=== PATIENT | female | born 1960 | race Hispanic/Latino ===

== ENCOUNTER → 2017-06-28 | Outpatient (CLI) | payer MEDICARE, OTHER | END | disposition home or self-care (01) | LOC: GT 08:10 | PROVIDERS: ATTEND Internal Medicine | DX: E11.9 Type 2 diabetes mellitus without complications (principal) | CPT/HCPCS: 36415; 83036; P9603 ==

== ENCOUNTER → 2017-07-03 | Outpatient (CLI) | payer MEDICARE, OTHER | LOC: GT 07:55 | DX: Z51.81 Encounter for therapeutic drug level monitoring (principal) ==

== ENCOUNTER → 2017-07-15 | Outpatient (CLI) | payer MEDICARE, MEDICAID | LOC: GT 07:22 | PROVIDERS: ATTEND Internal Medicine | DX: E11.9 Type 2 diabetes mellitus without complications (principal); Z79.899 Other long term (current) drug therapy | CPT/HCPCS: 36415; 80053; 83036; 85025; P9603 ==

== ENCOUNTER → 2017-07-19 | Outpatient (CLI) | payer MEDICARE, MEDICAID | LOC: GT 07:55 | PROVIDERS: ATTEND Psychiatry & Neurology Geriatric Psychiatry | DX: E87.6 Hypokalemia (principal); F25.0 Schizoaffective disorder, bipolar type; Z51.81 Encounter for therapeutic drug level monitoring ==

== ENCOUNTER → 2017-09-25 | Outpatient (CLI) | payer MEDICARE, MEDICAID | LOC: GT 09:28 | PROVIDERS: ATTEND Internal Medicine | DX: N39.0 Urinary tract infection, site not specified (principal); R63.4 Abnormal weight loss ==

== ENCOUNTER → 2017-10-02 | Outpatient (CLI) | payer MEDICARE, MEDICAID | LOC: GT 09:26 | PROVIDERS: ATTEND Internal Medicine | DX: R63.4 Abnormal weight loss (principal); Z51.81 Encounter for therapeutic drug level monitoring ==

== ENCOUNTER → 2017-10-04 | Outpatient (CLI) | payer MEDICARE, MEDICAID | LOC: GT 14:54 | PROVIDERS: ATTEND Internal Medicine | DX: A04.72 Enterocolitis due to Clostridium difficile, not specified as recurrent (principal) ==

== ENCOUNTER → 2017-10-11 | Outpatient (CLI) | payer MEDICARE, MEDICAID | LOC: GT 07:37 | PROVIDERS: ATTEND Internal Medicine | DX: Z79.899 Other long term (current) drug therapy (principal); E11.9 Type 2 diabetes mellitus without complications | CPT/HCPCS: 36415; 80053; 83036; 85025; P9603 ==

== ENCOUNTER → 2018-01-08 | Outpatient (CLI) | payer MEDICARE, MEDICAID | LOC: GT 15:05 | PROVIDERS: ATTEND Internal Medicine | DX: R10.9 Unspecified abdominal pain (principal); R68.89 Other general symptoms and signs; R53.83 Other fatigue ==

== ENCOUNTER 2018-01-10 13:44 | Emergency (ER) | payer MEDICARE, MEDICAID ==
[2018-01-10] MEDS ORDERED: cefTRIAXone SODIUM 2 GM in SODIUM CHL 0.9% 100ML MINI-BAG 100 ML IVPB ONE (14:39)
[2018-01-10] MEDS ORDERED: SODIUM CHLORIDE 0.9% 1000ML 1,000 ML IVS ONE ×2 (14:39→14:47)
[2018-01-10] MEDS ORDERED: SODIUM CHLORIDE 0.9% (FLUSH) 10 ML SYG IV PRN (14:39)
[2018-01-10] MEDS ORDERED: SODIUM CHL 0.9% 100ML MINI-BAG 100 ML IVPB ONE (14:53)
--- NOTE | 2018-01-10 15:10 | RAD ---
Right lateral decubitus single view abdomen. Single view chest. Indication: sepsis Comparison: None. Impression: Patient rotated to the right. Mild cardiomegaly. Tiny right pleural effusion. Mild right basilar atelectasis. No pneumothorax. No signs of intra-abdominal free air. Bowel gas pattern nonspecific without findings of obstruction. Osteopenia. If this is a new finding, DEXA scan recommended as well as evaluation for possible osteoporosis treatment. Questionable wedge deformities of several thoracolumbar vertebral bodies. Correlation with point tenderness recommended. Electronically signed by: Ilir Becker MD 01/10/2018 3:09 PM CDT
--- NOTE | 2018-01-10 15:52 | ED.PDOC ---
History of Present Illness - General Chief Complaint: Possible Sepsis Stated Complaint: Low BP, abnormal WBC's Time Seen by Provider: 01/10/18 14:16 Source: RN notes reviewed, Vital Signs reviewed, care home records Exam Limitations: clinical condition, physical impairment - History of Present Illness Initial Comments: Reportedly she has been feeling ill for about 4 days but nothing specific. Lab was ordered 4 days ago & it came back with a WBC count in the 40s 2 days later. The lab was repeated & today the WBC count was the same so she was sent here for an evaluation. A preliminary urine culture revealed gram negative rods. Her family can provide little information even as to why she has had an amputation, if she has diabetes or what the scar on her abd is from. Timing/Duration: other - suspected up to 4 days Severity: moderate Improving Factors: nothing Worsening Factors: nothing Associated Symptoms: malaise Allergies/Adverse Reactions: Allergies Codeine Allergy (Verified 01/10/18 15:09) Sulfa Antibiotics Allergy (Verified 01/10/18 15:09) Review of Systems - Review of Systems Constitutional: States: see HPI, other - limited EENTM: States: no symptoms reported Respiratory: States: no symptoms reported Cardiology: States: see HPI Gastrointestinal/Abdominal: States: abdominal pain Genitourinary: States: see HPI Musculoskeletal: States: no symptoms reported Skin: States: no symptoms reported Neurological: States: weakness Endocrine: States: no symptoms reported Hematologic/Lymphatic: States: no symptoms reported Unable to Obtain Due To: condition, dementia Past Medical History (General) - Patient Medical History Hx Stroke: No Hx Congestive Heart Failure: No Hx Diabetes: Yes - Neuropathy Hx Gastroesophageal Reflux: Yes Hx Renal Disease: - Overactive bladder - Vaccination History Hx Influenza Vaccination: - Unknown Hx Pneumococcal Vaccination: - Unknown - Social History Hx Tobacco Use: Yes Hx Alcohol Use: No - Activities of Daily Living Long Term/Assisted Living (if applicable):: [place] Family Medical History - Family History Mother Family History: Unknown Living Status: Physical Exam - Physical Exam General Appearance: Alert, Frail, No apparent distress - appears fatigued Eye Exam: bilateral normal, bilateral other - anicteric Ears, Nose, Throat: normal ENT inspection Neck: supple, normal inspection Respiratory: lungs clear, no respiratory distress Cardiovascular/Chest: regular rate, rhythm, no edema, no gallop, no JVD, no murmur Gastrointestinal/Abdominal: abnormal bowel sounds - increased, distended, tenderness - generalized but worse over the lower right flank area. Extremity: normal inspection, no pedal edema, other - right AKA Neurologic: alert, depressed affect - generalized weakness; unable to speak; moves arms & left leg Skin Exam: warm/dry, pallor Lymphatic: other - no cervical adenopthy Progress - Progress Progress: 01/10/18 15:49 BP as low as 80 but without tachycardia. Lactic acid normal & UA pending - Luevano about to be placed. Rocephin & fluid bolus infusing. 01/10/18 16:38 SBP 88. Alert & appears comfortable. Abd pain appears more right sided now. UA pending. Plan = cont IVF, probable CT abd; transfer. 01/10/18 18:48 SBP 103. Right femoral CL placed. 01/10/18 20:29 103/56. Appears comfortable. Abd exam is basically unchanged - pain is chiefly in the right lower flank area. I don't feel she has edson peritonitis at this time but it is possible she is early in the process. I do not feel she has mesenteric ischemia at his time. Will seek transfer. 01/10/18 22:18 - Results/Orders Results/Orders: WBC 46; Hgb 8.7; K 3.1; lactate 1; urine with 10-20 WBCs & bacteria. - EKG/XRAY/CT EKG: Sinus, no ST T wave changes - probably NSR @ 88 though P waves are hard to define; nml intervals; ST-T; rightward axis XRAY: abdomen - no acute process CT Ordered: Yes - edematous small bowel; peritoneal inflammation; right distal ureteral stone - Consult/PCP Time Called: 21:30 - accepted to ED @ . Procedures - Central Line Femoral vein Central Line Procedure Prep: betadine prep, sterile drapes applied, sterile dressing applied Anesthesia: Lidocaine cc's of anesthesia: 3 Complications: arterial stick initially. Pressure applied. No swelling. Departure - Departure Clinical Impression: Sepsis due to Escherichia coli Time of Disposition: 21:06 Disposition: Transfer to Hospital Condition: Serious Departure Forms: Patient Portal Self Enrollment Referrals: KAILASH TORRE [Primary Care Provider] - 1-2 Weeks Critical Care Note - Critical Care Note Total Time (mins): 90 - hemodynamic monitoring & treatment
[2018-01-10] MEDS ORDERED: LIDOCAINE 1% 2 ML VIAL INJ ONE (18:32)
--- NOTE | 2018-01-10 20:19 | CT ---
EXAM DESCRIPTION: Abdomen/Pelvis w/Contrast CLINICAL HISTORY: abd pain COMPARISON: None Available TECHNIQUE: Contiguous axial images of the abdomen and pelvis were obtained after the administration of intravenous contrast followed by reconstruction images.This exam was performed according to our departmental dose-optimization program, which includes automated exposure control, adjustment of the mA and/or kV according to patient size and/or use of iterative reconstruction technique. FINDINGS: There is mucosal thickening of small bowel loops in the left abdomen which could be secondary to an infectious or inflammatory process. Bowel ischemia is a consideration. There is a small amount of free fluid in the abdomen. There are areas of abnormal enhancement of the peritoneum worrisome for peritonitis.. There are small bilateral pleural fluid collections, right greater than left. Increased opacity in the dependent portion of the right lung may represent atelectasis. There is atherosclerosis. The gallbladder is distended otherwise unremarkable by CT criteria. There is a small left renal cyst. There is a nonobstructive stone within the left kidney. Right-sided hydronephrosis due to a 1.3 x 0.5 cm stone within the distal ureter. Atrophic right kidney suggests a probable obstruction. Diffuse enhancement of mucosal thickening of the ureteric could be secondary to chronic infectious/inflammatory process, underlying malignancy cannot be excluded. There is a Luevano catheter within the bladder. Patient is status post right hip surgery. There is a right central catheter with the tip ending at the level of the right. The liver, spleen, and pancreas are within normal limits. Aorta is of normal caliber and tapering. There is no bowel obstruction. IMPRESSION: Mucosal thickening of small bowel loops in the left abdomen which could be secondary to an infectious or inflammatory process. Bowel ischemia is a consideration. Small amount of free fluid in the abdomen. There are areas of abnormal enhancement of the peritoneum worrisome for peritonitis. Right-sided hydronephrosis due to a 1.3 x 0.5 cm stone within the distal ureter. Atrophic right kidney suggests a probable obstruction. Diffuse enhancement of mucosal thickening of the ureteric could be secondary to chronic infectious/inflammatory process, underlying malignancy cannot be excluded. Electronically signed by: Gene Lin MD 01/10/2018 8:18 PM CDT Workstation: [employer]
[2018-01-10] MEDS ORDERED: PIPERACILLIN/TAZOBACTAM 3.375 GM in SODIUM CHLORIDE 0.9% 100ML 100 ML IVPB ONE (21:01)
[2018-01-10] MEDS ORDERED: NOREPINEPHRINE BITARTRATE 4 MG/4 ML VIAL IVPB ONE (21:10)
[2018-01-10] MEDS ORDERED: DEXTROSE 5% 250ML 250 ML ONE (21:10)
[2018-01-10] MEDS ORDERED: PIPERACILLIN/TAZOBACTAM 3.375 GM VIAL IVPB ONE (21:15)
[2018-01-10] MEDS ORDERED: SODIUM CHLORIDE 0.9% 100ML 100 ML IVPB ONE (21:15)
[2018-01-10] MEDS ORDERED: NOREPINEPHRINE BITARTRATE 4 MG in DEXTROSE 5% 250ML 250 ML IVPB SCH (21:30)
[2018-01-11 01:17] VITALS: BP 124/60; TEMP 97.8; O2SAT 98
== END 2018-01-10 22:20 | disposition short-term general hospital (02) ==
LOC: GT 13:44 → ER 22:20
DX: A41.51 Sepsis due to Escherichia coli [E. coli] (principal); R10.31 Right lower quadrant pain; E11.40 Type 2 diabetes mellitus with diabetic neuropathy, unspecified; K21.9 Gastro-esophageal reflux disease without esophagitis; Z87.891 Personal history of nicotine dependence; Z88.5 Allergy status to narcotic agent; Z88.2 Allergy status to sulfonamides
CPT/HCPCS: 36415; 36416; 71045; 74018; 74177; 80053; 81001; 82550; 82553; 82948; 83605; 84484; 85025; 85379; 85610; 85730; 87040; 87086; 93005; J0696; J2543; J7030; J7050; J7060

== ENCOUNTER 2018-01-24 11:45 | Inpatient (IN) | payer MEDICARE, OTHER ==
[2018-01-24] MEDS ORDERED: SODIUM CHLORIDE 0.9% 1000ML 1,000 ML IVS ONE (12:12)
--- NOTE | 2018-01-24 12:22 | ED.PDOC ---
History of Present Illness - General Chief Complaint: General Stated Complaint: AMS Time Seen by Provider: 01/24/18 11:56 Source: patient Exam Limitations: clinical condition, other - mentally challenged poor historian - History of Present Illness Initial Comments: Allison Roberts 57 [place] patient at [facility] brought by EMS with altered mental status and low blood pressure at [place]; patient had been not talking much according to sister in law .She was brought to [facility] last 2 weeks ago for sepsis.According to sister in law she had lived in [place] in [place] for 3 years then moved here.she is mentally challenged.Presently on Cefepime antibiotics at [place] Timing/Duration: 1-3 hours Severity: moderate Improving Factors: nothing Worsening Factors: nothing Associated Symptoms: other - see hpi Allergies/Adverse Reactions: Allergies Codeine Allergy (Verified 01/10/18 15:09) Sulfa Antibiotics Allergy (Verified 01/10/18 15:09) Review of Systems - Review of Systems Constitutional: States: no symptoms reported EENTM: States: no symptoms reported Respiratory: States: no symptoms reported Cardiology: States: no symptoms reported Gastrointestinal/Abdominal: States: no symptoms reported Genitourinary: States: other - has pyelitis with drain on kidney Musculoskeletal: States: no symptoms reported Skin: States: no symptoms reported Neurological: States: see HPI - as per [place] Past Medical History (General) - Patient Medical History Hx Stroke: No Hx Congestive Heart Failure: No Hx Diabetes: Yes - Neuropathy Hx Gastroesophageal Reflux: Yes Hx Renal Disease: - Overactive bladder Surgical History: other - A/K amputation right leg - Vaccination History Hx Influenza Vaccination: - Unknown Hx Pneumococcal Vaccination: - Unknown - Social History Hx Tobacco Use: Yes Hx Alcohol Use: No - Activities of Daily Living [facility]/Assisted Living (if applicable):: [facility] Family Medical History - Family History Mother Family History: Unknown Living Status: Physical Exam - Physical Exam General Appearance: Alert, Comfortable, No apparent distress, Other - states feeling ok Eye Exam: bilateral normal - with glasses Ears, Nose, Throat: normal pharynx - edentelous, other - hard of hearing lost hearing aids Neck: non-tender, supple, normal inspection Respiratory: chest non-tender, lungs clear, normal breath sounds, no respiratory distress Cardiovascular/Chest: normal peripheral pulses, regular rate, rhythm, no murmur Peripheral Pulses: radial,right: 2+, radial,left: 2+ Gastrointestinal/Abdominal: normal bowel sounds, non tender, soft, no organomegaly Rectal Exam: normal rectal tone, other - no impactede stool Back Exam: normal inspection, no CVA tenderness, no vertebral tenderness, other - no skin breakdown Extremity: no pedal edema, no calf tenderness, other - Right A/K amputation Neurologic: no motor/sensory deficits, alert Skin Exam: normal color, warm/dry, other - drain right flank area exudate Progress - Progress Progress: 01/24/18 12:28 Vital Signs - 24 hr 01/24/18 11:45 Temperature 98.2 F Pulse Rate [ 90 Left Radial] Respiratory 18 Rate Blood Pressure 88/55 [Right Arm] O2 Sat by Pulse 90 L Oximetry 01/24/18 21:10 D/W Dr. Miles -Urologist may admit patient here at [facility] to call him up if patient symptoms worsens - Results/Orders Results/Orders: 01/24/18 12:01 IV Care:Saline Lock per Protoc QSHIFT 01/24/18 20:49 Cefepime [Maxipime] 2 gm Sodium Chl 0.9% 50Ml Min-Bag+ [NS 50ml MINI-BAG+] 50 ml IVPB ONCE Laboratory Results - last 24 hr 01/24/18 01/24/18 01/24/18 12:45 12:45 12:45 WBC 13.4 H RBC 3.25 L Hgb 9.9 L Hct 31.4 L MCV 96.9 MCH 30.4 MCHC 31.4 L RDW 17.3 H Plt Count 299 MPV 8.1 Absolute Neuts (auto) Not Reportable Absolute Lymphs (auto) Not Reportable Absolute Monos (auto) Not Reportable Absolute Eos (auto) Not Reportable Neutrophils % Not Reportable Neutrophils % (Manual) 63.0 Lymphocytes % Not Reportable Lymphocytes % (Manual) 15.0 Monocytes % Not Reportable Monocytes % (Manual) 9.0 Eosinophils % Not Reportable Basophils % Not Reportable Band Neutrophils 13.0 H* Normal RBC Morphology 1+toxic granulation PT 11.6 H INR 1.16 H PTT (SP) 27.9 Sodium 138 Potassium 3.9 Chloride 102 Carbon Dioxide 25 Anion Gap 14.9 BUN 22 H Creatinine 0.79 BUN/Creatinine Ratio 27.8 H Random Glucose 79 Serum Osmolality 277.9 Lactic Acid 1.0 Calcium 8.7 Magnesium 2.0 Total Bilirubin 0.4 Direct Bilirubin < 0.1 Indirect Bilirubin 0.3 AST 11 ALT < 8 L Alkaline Phosphatase 81 Creatine Kinase 12 L CK-MB (CK-2) 1.9 CK-MB (CK-2) % Not Reportable Troponin I < 0.02 Serum Total Protein 6.7 Albumin 2.9 L Urine Color Urine Appearance Urine pH Ur Specific [place] Urine Protein Urine Glucose (UA) Urine Ketones Urine Blood Urine Nitrite Urine Bilirubin Urine Urobilinogen Ur Leukocyte Esterase Urine RBC Urine WBC Ur Epithelial Cells Urine Bacteria 01/24/18 15:07 WBC RBC Hgb Hct MCV MCH MCHC RDW Plt Count MPV Absolute Neuts (auto) Absolute Lymphs (auto) Absolute Monos (auto) Absolute Eos (auto) Neutrophils % Neutrophils % (Manual) Lymphocytes % Lymphocytes % (Manual) Monocytes % Monocytes % (Manual) Eosinophils % Basophils % Band Neutrophils Normal RBC Morphology PT INR PTT (SP) Sodium Potassium Chloride Carbon Dioxide Anion Gap BUN Creatinine BUN/Creatinine Ratio Random Glucose Serum Osmolality Lactic Acid Calcium Magnesium Total Bilirubin Direct Bilirubin Indirect Bilirubin AST ALT Alkaline Phosphatase Creatine Kinase CK-MB (CK-2) CK-MB (CK-2) % Troponin I Serum Total Protein Albumin Urine Color Yellow Urine Appearance Clear Urine pH 5.5 Ur Specific [place] 1.010 Urine Protein Negative Urine Glucose (UA) Negative Urine Ketones Negative Urine Blood Trace-intact H Urine Nitrite Negative Urine Bilirubin Negative Urine Urobilinogen 0.2 Ur Leukocyte Esterase Trace H Urine RBC 1-3 Urine WBC 5-10 H Ur Epithelial Cells 0 Urine Bacteria 1+ - EKG/XRAY/CT XRAY: chest - smaol right pleural effusion CT Ordered: Yes - abd/p-see reports Departure - Departure Clinical Impression: Calculous pyelonephritis, Ureteral calculus, right, Nephrostomy status, DNR no code (do not resuscitate) Time of Disposition: 21:13 Disposition: Admit Patient Condition: Fair Departure Forms: Patient Portal Self Enrollment Referrals: KAILASH TORRE [Primary Care Provider] - 1-2 Weeks Decision To Admit - Decistion To Admit Decision to Admit Reason: Admit from ER Decision to Admit Date: 01/24/18 - D/W Sergio Tamayo-ANP/Hospitalist Decision to Admit Time: 21:12
--- NOTE | 2018-01-24 12:34 | RAD ---
EXAM DESCRIPTION: Chest,1 View CLINICAL HISTORY: 57 years Female, ams COMPARISON: Previous study January 10, 2018 TECHNIQUE: AP portable chest. FINDINGS: Heart size is normal with normal pulmonary vascularity. Central line from the left upper extremity is seen with tip in the region of the mid to lower superior vena cava. No consolidating infiltrate. No pulmonary mass or worrisome nodule. Small to moderate right pleural effusion is present. Catheter in the right upper abdomen is noted. The size of the effusion is stable to slightly increased compared to previous study. Bones are osteopenic or osteoporotic. IMPRESSION: Small to moderate right pleural effusion. Electronically signed by: Gabe Damico MD 01/24/2018 12:32 PM CDT
[2018-01-24] MEDS ORDERED: CEFEPIME 2 GM in SODIUM CHL 0.9% 50ML MIN-BAG+ 50 ML IVPB ONE ×2 (14:30→20:49)
[2018-01-24] MEDS ORDERED: CEFEPIME 2 GM VIAL ONE ×2 (14:48→20:54)
[2018-01-24] MEDS ORDERED: SODIUM CHL 0.9% 50ML MIN-BAG+ 50 ML IVPB ONE ×2 (14:48→20:55)
--- NOTE | 2018-01-24 16:36 | CT ---
EXAM DESCRIPTION: Abdomen/Pelvis w/o Contrast: Computed Tomography. CLINICAL HISTORY: distention abdomen. COMPARISON: CT scan abdomen and pelvis 01/10/2018. TECHNIQUE: Spiral-axial scans 5.0 x 5.0 mm intervals through the abdomen and pelvis without oral or IV contrast. Coronal and sagittal 2.0 mm mm reconstructions. Total Exam DLP: 658.85 mGy-cm. This exam was performed according to our departmental CT dose-optimization program which includes automated exposure control, adjustment of the mA and/or kV according to patient size and/or use of iterative reconstruction technique; to reduce radiation dose to as low as reasonably achievable (ALARA). FINDINGS: Lung bases and pleura: Effusion on the right with atelectasis in the right lower lobe. Liver, stomach, spleen, and adrenal glands: Long axis of the right lobe of the liver is 16.4 cm. Minimal fluid in the stomach. Surgical clips at the gastroesophageal junction. Other solid organs are unremarkable. Pancreas, Gallbladder, and Ducts: Head of pancreas not well seen due to lack of IV contrast. Body and tail are small and unremarkable. First through third segments of the duodenum are distended with fluid and gas. Gallbladder unremarkable. Kidneys and Ureters: Since the prior study, a percutaneous nephrostomy has been performed with tube entering the right flank, the posterior inferior calyces of the right kidney and terminating in the distal mid right ureter at the level of L5-S1. This is approximately 4 cm superior to a 12 x 9 mm stone in the distal right ureter which was also seen on the prior study. Smaller stone superior to the larger stone. No right hydronephrosis or perinephric fluid. 2 mm nonobstructing stone in the mid collecting system of the left kidney with no hydronephrosis or hydroureter.. Mesentery: Increased density in the inferior abdomen and upper pelvis to the right of midline with a fluid collection which has persisted since the prior scan at the level of the above-mentioned large intraureteral stone with mass effect on small bowel and the medial right ureter. This fluid collection measures 3.8 x 2.6 x 5.0 cm, and appears to communicate with fluid above the bladder. A percutaneous drain terminated just superior to this fluid collection and posterior to the right ureter on the prior study and this change is been removed. Also fluid in the right paracolic gutter and fluid abutting the lateral inferior liver. Fluid has decreased in the gutters since the prior study. Fascial thickening in the bilateral paracolic gutters. Aorta: Moderate atherosclerotic calcification mostly in the mid and distal aorta calcification in the bilateral common iliacs. Small Bowel: Gas and fluid in the small bowel with distal air-fluid levels but not consistent with obstruction. More normal caliber of small bowel distally.. Terminal Ileum/Cecum: Normal caliber. Appendix is not seen. Colon: Mixed gas and fecal matter in the remainder of the colon with radiodense fecal matter distally. No significant air-fluid levels. Minimal redundancy in the distal sigmoid colon and small diverticula but no complications. Pelvic Organs: Urinary bladder is decompressed with urinary catheter and fluid-filled balloon. No radiodense stones in the bladder. Minimal fluid in the cul-de-sac. Minimally decreased since the prior study. Spine and Bony Pelvis: Stable since the prior study. Abdominal Wall/Back Soft Tissues: Minimal diastases at the umbilicus not containing bowel. Stable since the prior study.. IMPRESSION: 1. Persistent fluid collection in the lateral right pelvis abutting the adnexa and the right ureter which is obstructed by 12 x 9 mm stone. 3.8 x 2.7 x 5.0 cm. Stable compared to the prior study Cannot exclude an abscess, or communication between this fluid collection and the ureter, versus free fluid in the lower abdomen and pelvis. Previously seen percutaneous drain terminating above this fluid collection has been removed. A right nephroureterostomy has been performed posteriorly through the inferior right collecting system with the catheter terminating just above the large right ureteral stone. No perirenal fluid hydronephrosis on the right. Small nonobstructing stone in the left kidney is left ureter unremarkable. 2. Decreased distention of the small bowel. Decreased fluid in the right paracolic gutter and cul-de-sac and also left abdomen and pelvis, except for the previously described fluid collection. 3. Stable right pleural effusion and atelectasis in the right lower lobe. CRITICAL COMMUNICATION: The critical value was discussed directly by phone with Dr. Gutierres at approximately 1630 hours, on January 24, 2018. Electronically signed by: Gianfranco Gray MD 01/24/2018 4:35 PM CDT
[2018-01-24] MEDS ORDERED: MIRTAZAPINE 7.5 MG PO SCH (21:00)
--- NOTE | 2018-01-24 21:32 | HP ---
SUPERVISING PHYSICIAN: Solis Gusman M.D. CHIEF COMPLAINT: Acute mental status change. HISTORY OF PRESENT ILLNESS: Ms. Roberts is a 57 year-old female patient who resides at [facility]. She was brought to the Emergency Room by EMS with an altered mental status and low blood pressure reported by the skilled nursing. The patient is mentally challenged and a very poor historian. There are no previous records available for review as well as no family is available at time of admission. According to the E. R., she was seen [facility] E. [facility] 2 weeks ago for sepsis at which time she was transported to [facility]. At that time the patient was treated for sepsis secondary to pyelonephritis due to a urethral stone that was resulting in complete obstruction of the right ureter. The stone measured on CT today 12 x 9 mm. She apparently had a percutaneous drain in place for an abscess as well as a nephroureterostomy in the right inferior collecting system. According to the skilled nursing, the patient was treated with Cefepime which was continued at the skilled nursing. At some point the drain was removed and today the skilled nursing staff noted that there again was some purulent drainage coming from the nephroureterostomy tube. She also reportedly had a low-grade fever and was having acute mental status change along with some hypotension. On presentation to the Emergency Room, vital signs initially showed temperature 98.2 with blood pressure 88/55. Review of previous E. R. records on the last E. R. admission, the patient became severely hypotensive requiring Levophed and was transferred to ICU. Today, her laboratory studies show that she has a white count of 13,400 compared to previous of 46,100, but today she has 13% bands and a left shift. Review of previous records show that she grew an Escherichia coli that was fairly resistant showing sensitive to Zosyn and Bactrim. She has been on Cefepime 2 grams every 8 hours since discharge from [facility] for a total of 7 day course which she is to finish on day of admission today. Additional laboratory studies showed that her creatinine was 0.79. Liver functions were all within normal limits. Electrolytes showed to be normal with potassium 3.9. Urine from Luevano catheter in the E. R. showed that she had a trace of blood, leukocyte esterase and 1 to 3 RBCs on microscopic as well as 5 to 10 WBCs with 1 + bacteria. A CT with contrast of pelvis and abdomen was completed and per radiology interpretation there once again was noted a 12 x 9 mm stone in the distal right ureter which was seen on previous study. There was no hydronephrosis or perirenal fluid noted. Of note was a persistent fluid collection in the lateral pelvis measuring 3.8 x 2.7 x 5 cm which is reportedly stable compared to previous study, although abscess could not be ruled out nor could communication between the fluid collection and the ureter versus free fluid in the lower abdomen and pelvis. Of note was a previously seen percutaneous drain terminating above the fluid collection had been removed and the right nephroureterostomy had been performed posterior to the inferior right collecting system with a catheter that was terminated just above the right ureteral stone. The patient was given IV fluids as well as a dose of Cefepime and was found to be hemodynamically stable. Dr. Gutierres contacted concrete block molder urologist who recommended that if the patient was stable that she could be admitted here and continued on antibiotic therapy for close monitoring, and should she show instability she could at that time be transferred to [facility] for a higher level of care. The patient now is going to be admitted for pyelonephritis of right kidney secondary to obstructed ureter from a ureteral stone measuring as noted above. She was admitted in stable condition. PAST MEDICAL HISTORY: 1. Diabetes mellitus type 2. 2. Gastroesophageal reflux disease. 3. Overactive bladder. 4. Yxelk-rrf-pfsm amputation right leg. 5. History of pyelonephritis secondary to obstructing 12 x 9 mm stone in the right ureter. PAST SURGICAL HISTORY: 1. Atndf-jsy-eqzm amputation right leg. 2. Placement of a nephroureterostomy tube. CURRENT MEDICATIONS: Please refer to the MAR and updated list in the electronic medical records for verified medications. 1. Nitroglycerin sublingual. 2. Benadryl. 3. Tylenol. 4. Dulcolax. 5. Morphine sulfate. 6. Lexapro. 7. Ibuprofen. 8. Depakote. 9. Senna. 10. Vitamin C supplement. 11. Gas-X. 12. Nuedexta. 13. Lasix. 14. Aspirin. 15. Maalox. 16. Lipitor. 17. Vitamin D. 18. Neurontin. 19. Ferrous sulfate. 20. Imodium. 21. Acidophilus. 22. Metformin. 23. Milk of Magnesia. 24. Multivitamin. 25. Mirtazapine. 26. Myrbetriq. 27. Zofran. 28. Topamax. 29. Carafate suspension. 30. Zantac. 31. Flagyl. 32. Micro-K. ALLERGIES: CODEINE AND SULFA ANTIBIOTICS. FAMILY HISTORY: Noncontributory. SOCIAL HISTORY: The patient currently lives at [facility]. She does not smoke and has been institutionalized the majority of her adult life. REVIEW OF SYSTEMS: Limited by the patient's mental status. PHYSICAL EXAMINATION: VITAL SIGNS: In the Emergency Department, temperature initially was 98.2, pulse 90, blood pressure initially 88/55, respirations 18, satting 90% on room air. After fluids the patient's blood pressure was 102/62 with heart rate 89. Admission weight was 50.8 kg. GENERAL: On admission to the Medical/Surgical floor, the patient was resting comfortably, appeared to be in no acute distress. She was alert with no complaints. HEENT: Tympanic membranes were clear bilaterally. Oropharynx was pink and moist without any lesions. She does wear glasses as well as hearing aids and is edentulous. NECK: Non-tender, full range of motion with no jugular venous distention noted. CHEST: Lungs are clear to auscultation bilaterally without any rhonchi, wheezing or rales. CARDIOVASCULAR: Regular rate and rhythm without appreciable murmurs, gallops, or rubs. ABDOMEN: Soft with some tenderness noted in the left lower quadrant. No rebound tenderness. Bowel sounds were present and normal. RECTAL: Exam was deferred. It was performed in the E. R. Per the records showed normal rectal tone with no impacted stools. BACK: A drain is present on the right flank with material draining into a bag. EXTREMITIES: Right zihdy-bow-soff amputation. Left extremity showed no edema, clubbing or cyanosis. NEUROLOGIC: She is alert. No obvious motor or sensory deficits are noted but she is not oriented to current location, but answers questions with simple yes or no. Cranial nerves II-XII appear to be grossly intact as tested. There is no facial drooping. Extraocular movements are within normal limits. There is no notable nystagmus. LABORATORY: White count on admission was 13,400, hemoglobin 9.9, hematocrit 31.4, platelet count 299,000. Differential did show a left shift with increased bands at 13%. Coagulation studies showed a PT of 9.6, PTT 27.9. Chemistries on admission showed normal electrolytes with BUN 22, creatinine 0.79 , glucose 79, calcium 8.7, magnesium 2.0 with normal lactic acid at 1.0. Liver functions are all within normal limits. Troponin was less than 0.02. Urine collected from the Luevano bag showed yellow clear urine with a trace of intact blood and leukocyte esterase. Microscopic showed 1 to 3 RBCs, 5 to 10 WBCs, 0 epithelials and 1+ bacteria. MICROBIOLOGY: Urine culture is pending from both the catheter specimen and the drain on the right flank area. RADIOLOGY: Initially she had a chest x-ray single view chest per radiology interpretation showed a small right pleural effusion. She also had an abdominal and pelvic CT with contrast and per radiology interpretation again was note of a persistent fluid collection in the lateral right pelvis abutting to the adnexa and the right ureter which is obstructed by a 12 x 9 mm stone with the fluid collection measuring 3.8 x 2.7 x 5 cm and showing to be stable compared to prior studies per radiology. There is note that could not exclude an abscess or communication between the fluid collection and the ureter versus free fluid in the lower abdomen and pelvis. There was also note of previously seen percutaneous drain terminated above the fluid collection had been removed. There was note of a right nephroureterostomy that had been performed posteriorly through the inferior right collecting system with the catheter terminated just above the large right ureteral stone. There was no prerenal fluid, hydronephrosis on the right. There was note of small nonobstructing stone in the left kidney with the ureters unremarkable. There was also note of decreased distention of the small bowel with decreased fluid in the right pericolic gutter and cul-de-sac, also left abdomen and pelvis except for the previously described fluid collection as noted above. Please see that report for full details. ASSESSMENT: 1. Right pyelonephritis acute on chronic secondary to obstructing ureteral stone status post nephroureterostomy. 2. Sepsis secondary to #1 as evidenced by low-grade fever and leukocytosis with increased bands and hypotension with the patient currently on Cefepime. 3. Moderate mental retardation. 4. Type 2 diabetes mellitus with a history of mwjkw-yfd-qzki amputation on the right secondary to complications. 5. Depression with questionable seizure activity with the patient being on Depakote with no medical records available of past history for review at time of admission and the patient being a poor historian. PLAN: Dr. Gutierres in the E. R. called and talked to urology and discussed the case who recommended that the patient appeared to be fairly stable and could be admitted here, and continued on antibiotics. Recommendations for antibiotic coverage was Cefepime 2 grams every 8 hours. I have resumed Cefepime and will resume her home medications once those are updated and verified. She will be on DVT prophylaxis as per protocol. She will be on insulin sliding scale per protocol. I have requested a culture on the drainage from the nephroureterostomy tube as well as urine culture. Will await those cultures to further target antibiotic therapy. The patient will be closely monitored and should she show any acute clinical signs of decline, certainly will contact urology who stated that they would take the patient in transfer at that time. Again, the patient is stable. Will anticipate length of stay to be at least 2 to 3 days. I will also ask for a consultation with urology on Saturday if the patients is still in the hospital, who I believe at that time will be Dr. Drake. Until the patient is clinically stable and can be discharged, will continue to monitor and treat appropriately. #[id number] [facility]
[2018-01-24] MEDS ORDERED: GLUCAGON INJ 1 MG VIAL SUBCU PRN (22:05)
[2018-01-24] MEDS ORDERED: DEXTROSE 50% 25 GM/50 ML SYG IV PRN (22:05)
[2018-01-24] MEDS ORDERED: ACETAMINOPHEN 325 MG TAB PO PRN (22:05)
[2018-01-24] MEDS ORDERED: ONDANSETRON INJ 4 MG/2 ML VIAL IV PRN (22:05)
[2018-01-24] MEDS ORDERED: SODIUM CHLORIDE 0.9% (FLUSH) 10 ML SYG IV PRN (22:05)
[2018-01-24] MEDS ORDERED: ALUMINUM & MAGNESIUM HYDROXIDE 30 ML UD PO PRN (22:12)
[2018-01-24] MEDS ORDERED: MAGNESIUM HYDROXIDE 30 ML UD PO PRN (22:12)
[2018-01-24] MEDS ORDERED: BISACODYL TAB 5 MG TAB PO PRN (22:12)
[2018-01-24] MEDS ORDERED: DIVALPROEX SODIUM 250 MG PO SCH (22:15)
[2018-01-24] MEDS ORDERED: MIRTAZAPINE 15 MG TAB ONE (22:46)
[2018-01-24] MEDS ORDERED: DIVALPROEX SODIUM 250 MG TAB ONE (22:46)
[2018-01-24] MEDS: KCL 20MEQ/0.45% NS 1,000 ML IVS PRN (22:49)
[2018-01-24] MEDS: SIMETHICONE 80 MG TAB PO SCH (22:50)
[2018-01-24] MEDS: ENOXAPARIN SODIUM 40 MG/0.4 ML SYG SUBCU SCH (22:51)
[2018-01-24] MEDS: IV SET AND CAP CHANGE INJ INJ SCH (22:51)
[2018-01-24] MEDS: GABAPENTIN 300 MG CAP PO SCH (22:51)
[2018-01-24] MEDS: metroNIDAZOLE 500 MG TAB PO SCH (22:51)
[2018-01-25] MEDS ORDERED: CEFEPIME 2 GM in SODIUM CHL 0.9% 50ML MIN-BAG+ 50 ML IVPB SCH ×2 (03:00→22:30)
[2018-01-25] MEDS ORDERED: CEFEPIME 2 GM VIAL ONE ×3 (05:17→19:54)
[2018-01-25] MEDS ORDERED: SODIUM CHL 0.9% 50ML MIN-BAG+ 50 ML IVPB ONE ×3 (05:17→19:53)
[2018-01-25] MEDS: CEFEPIME 2 GM in SODIUM CHL 0.9% 50ML MIN-BAG+ 50 ML IVPB SCH ×4 (05:30→21:44)
[2018-01-25] MEDS: INSULIN LISPRO 100 UNITS/ML PEN SUBCU SCH ×4 (07:17→22:13)
[2018-01-25] MEDS ORDERED: FERROUS SULFATE 325 MG TAB ONE (08:13)
[2018-01-25] MEDS ORDERED: CHOLECALCIFEROL 2,000 IU TAB PO ONE (08:13)
[2018-01-25] MEDS ORDERED: POTASSIUM CHLORIDE 10 MEQ TAB PO ONE (08:14)
[2018-01-25] MEDS ORDERED: DIVALPROEX SODIUM 250 MG TAB PO SCH (09:00)
[2018-01-25] MEDS: SUCRALFATE 1 GM/10 ML 1 GM UD PO SCH ×4 (09:31→21:30)
[2018-01-25] MEDS: metroNIDAZOLE 500 MG TAB PO SCH ×3 (09:33→21:30)
[2018-01-25] MEDS: BIFIDOBACTERIUM INFANTIS 4 MG CAP PO SCH ×2 (09:33→21:30)
[2018-01-25] MEDS: SENNOSIDES 8.6 MG TAB PO SCH (09:33)
[2018-01-25] MEDS: IBUPROFEN 200 MG TAB PO SCH ×3 (09:34→21:30)
[2018-01-25] MEDS: MULTIPLE VITAMIN 1 EA TAB PO SCH (09:34)
[2018-01-25] MEDS: SIMETHICONE 80 MG TAB PO SCH ×3 (09:34→21:30)
[2018-01-25] MEDS: CHOLECALCIFEROL 2,000 IU TAB PO SCH ×2 (09:34→21:30)
[2018-01-25] MEDS: ASPIRIN (CHEWABLE) 81 MG TAB PO SCH (09:34)
[2018-01-25] MEDS: GABAPENTIN 300 MG CAP PO SCH ×2 (09:34→21:30)
[2018-01-25] MEDS: TOPIRAMATE 25 MG TAB PO SCH (09:35)
[2018-01-25] MEDS: ESCITALOPRAM 10 MG TAB PO SCH (09:35)
[2018-01-25] MEDS: FERROUS SULFATE 325 MG TAB PO SCH ×2 (09:35→16:30)
[2018-01-25] MEDS: metFORMIN HCL 500 MG TAB PO SCH (09:35)
[2018-01-25] MEDS: ACETAMINOPHEN 325 MG TAB PO SCH (09:36)
[2018-01-25] MEDS: POTASSIUM CHLORIDE 10 MEQ TAB PO SCH (09:36)
[2018-01-25] MEDS ORDERED: SODIUM CHLORIDE 0.9% (FLUSH) 10 ML SYG IV PRN (09:39)
[2018-01-25] MEDS: NON-FORMULARY MEDICATION 1 EA MIS (Mirabegron [Myrbetriq] 25 MG) PO SCH (09:50)
[2018-01-25] MEDS: ASCORBIC ACID 500 MG TAB PO SCH (09:57)
[2018-01-25] MEDS ORDERED: DIVALPROEX SODIUM 250 MG TAB PO ONE ×2 (10:20→10:41)
[2018-01-25] MEDS: KCL 20MEQ/0.45% NS 1,000 ML IVS PRN (12:11)
[2018-01-25] MEDS ORDERED: SODIUM CHLORIDE 0.9% 500ML 500 ML IVS ONE (13:47)
--- NOTE | 2018-01-25 18:11 | PN ---
DATE: 01/25/18 SUPERVISING PHYSICIAN: Solis Gusman M.D. SUBJECTIVE: The patient has remained stable through the night. She did run a low-grade temperature of T max of 100.0. She is alert this morning and is eating breakfast, and has no further complaints. OBJECTIVE: VITAL SIGNS: T max 100.0, pulse 79, blood pressure 99/59, respirations 18, satting 98% on nasal cannula at 2 liters at rest. I's and O's show a negative balance of 2065 with 2089 in, 2950 out. Weight 0.8 kg. CHEST: Lungs were clear to auscultation, just diminished towards the bases. HEART: Regular rate and rhythm. ABDOMEN: Soft with continued tenderness noted in the right lower quadrant. No rebound tenderness. Bowel sounds are present. She remains alert but is unsure of where she is at and continues to be minimally confused, but is pleasant and resting comfortably with no obvious neuromotor deficits. LABORATORY: White count this morning has gone down to 11,800, hemoglobin is stabilized at 9.5 and 30.0, platelet count 277,000. Differential continues to show a left shift with continued elevated bands today at 12%. Electrolytes show to be within normal limits with mildly low potassium at 3.2, glucose was 95 to 132, calcium 8.4. MICROBIOLOGY: Urine culture is pending. Blood cultures were not drawn in the E. R. prior to admission. ASSESSMENT: 1. Right pyelonephritis acute on chronic secondary to obstructing ureteral stone status post nephroureterostomy. 2. Sepsis secondary to #1 with continued low-grade temperature and leukocytosis with increased bands and mild hypotension with the patient currently continuing to be on Cefepime. 3. Moderate mental retardation. 4. Type 2 diabetes mellitus with a history of vfprd-ypo-krak amputation secondary to complications. 5. Depression again with questionable seizure activity as the patient is on Depakote. 6. Mild electrolyte imbalance with hypokalemia. PLAN: Will continue with Cefepime 2 grams every 8 hours this morning. She remains on fluids for maintenance. Will continue to monitor her closely and should her blood pressure show decline, certainly will give her some additional fluids. At this point she appears to be stable. Will continue to monitor closely and anticipate discharge once showing to be more hemodynamically stable and no longer running a fever based off consultation findings by urology which will be completed on Saturday. If or when she does show any decline clinically will certainly call on-call urology for transfer to [facility]. Until that point, will continue to monitor and treat appropriately. #[id number] [facility]
[2018-01-25] MEDS ORDERED: SODIUM CHLORIDE 0.9% (FLUSH) 10 ML SYG IV SCH (21:00)
[2018-01-25] MEDS: MIRTAZAPINE 15 MG TAB PO SCH (21:30)
[2018-01-25] MEDS: ATORVASTATIN 20 MG TAB PO SCH (21:30)
[2018-01-25] MEDS: ENOXAPARIN SODIUM 40 MG/0.4 ML SYG SUBCU SCH (21:30)
[2018-01-25] MEDS: DIVALPROEX SODIUM 250 MG TAB PO SCH (21:30)
[2018-01-25] MEDS ORDERED: ENOXAPARIN SODIUM 40 MG/0.4 ML SYG SUBCU SCH (23:00)
[2018-01-26] MEDS: KCL 20MEQ/0.45% NS 1,000 ML IVS PRN ×2 (03:11→16:12)
[2018-01-26] MEDS ORDERED: CEFEPIME 2 GM VIAL ONE ×3 (05:23→20:07)
[2018-01-26] MEDS ORDERED: SODIUM CHL 0.9% 50ML MIN-BAG+ 50 ML IVPB ONE ×3 (05:23→20:06)
[2018-01-26] MEDS: CEFEPIME 2 GM in SODIUM CHL 0.9% 50ML MIN-BAG+ 50 ML IVPB SCH ×3 (06:00→22:00)
[2018-01-26] MEDS: INSULIN LISPRO 100 UNITS/ML PEN SUBCU SCH ×4 (07:02→21:30)
[2018-01-26] MEDS: metFORMIN HCL 500 MG TAB PO SCH (07:23)
[2018-01-26] MEDS: FERROUS SULFATE 325 MG TAB PO SCH ×2 (07:23→16:00)
[2018-01-26] MEDS: POTASSIUM CHLORIDE 10 MEQ TAB PO SCH (07:23)
[2018-01-26] MEDS: CHOLECALCIFEROL 2,000 IU TAB PO SCH ×2 (08:26→21:11)
[2018-01-26] MEDS: SUCRALFATE 1 GM/10 ML 1 GM UD PO SCH ×4 (08:26→21:09)
[2018-01-26] MEDS: ASCORBIC ACID 500 MG TAB PO SCH (08:27)
[2018-01-26] MEDS: IBUPROFEN 200 MG TAB PO SCH ×3 (08:27→21:11)
[2018-01-26] MEDS: ASPIRIN (CHEWABLE) 81 MG TAB PO SCH (08:27)
[2018-01-26] MEDS: SENNOSIDES 8.6 MG TAB PO SCH (08:27)
[2018-01-26] MEDS: GABAPENTIN 300 MG CAP PO SCH ×2 (08:27→21:30)
[2018-01-26] MEDS: metroNIDAZOLE 500 MG TAB PO SCH ×3 (08:27→21:12)
[2018-01-26] MEDS: BIFIDOBACTERIUM INFANTIS 4 MG CAP PO SCH ×2 (08:27→21:10)
[2018-01-26] MEDS: DIVALPROEX SODIUM 250 MG TAB PO SCH ×2 (08:27→21:10)
[2018-01-26] MEDS: SIMETHICONE 80 MG TAB PO SCH ×3 (08:27→21:11)
[2018-01-26] MEDS: ESCITALOPRAM 10 MG TAB PO SCH (08:28)
[2018-01-26] MEDS: MULTIPLE VITAMIN 1 EA TAB PO SCH (08:28)
[2018-01-26] MEDS: TOPIRAMATE 25 MG TAB PO SCH (08:28)
[2018-01-26] MEDS: ACETAMINOPHEN 325 MG TAB PO SCH (08:28)
[2018-01-26] MEDS ORDERED: KETOROLAC TROMETHAMINE INJ 30 MG/ML VIAL IV ONE (09:14)
[2018-01-26] MEDS: NON-FORMULARY MEDICATION 1 EA MIS (Mirabegron [Myrbetriq] 25 MG) PO SCH (09:30)
--- NOTE | 2018-01-26 11:03 | RAD ---
PROCEDURE: Abdomen Flat Upright Clinical History: abdominal pain Indication: Same as above Comparison: CT of the abdomen and pelvis done on 01/24/2018 Technique: Two views of the abdomen and pelvis were done. Findings: There is no gross evidence of free air in the abdomen or the pelvis . The small and large bowel gas pattern does not show any evidence of obstruction, ileus or bowel wall thickening. There is no visualization of radiopaque calculi in the outline of the urinary tract. The visualized lung bases show tiny right-sided pleural effusion . Note is made of a percutaneous right-sided catheter terminating in the medial right upper pelvis. ORIF in the region of the proximal right femur is noted. There is mild constipation. Impression: There is a nonspecific and nonobstructive bowel gas pattern. There is mild constipation There is a small right-sided pleural effusion Electronically signed by: Elvin Gutierrez MD 01/26/2018 11:02 AM CDT Workstation: [id number]
[2018-01-26] MEDS: MORPHINE SULFATE INJ 10 MG/ML VIAL IV PRN (11:07)
[2018-01-26] MEDS ORDERED: BISACODYL SUPPOSITORY 10 MG PR ONE (11:31)
--- NOTE | 2018-01-26 12:42 | PN ---
DATE: 01/26/18 SUPERVISING PHYSICIAN: Solis Gusman M.D. SUBJECTIVE: The patient continues to run a low-grade fever with T max yesterday afternoon at 1300 at 99.9. She has had no nausea or vomiting and has had a bowel movement. She does continue to have some discomfort into the abdominal area which today appears to be a little bit more diffuse than on the left, but is in no acute distress. She was given a dose of Milk of Magnesia yesterday and had a large bowel movement, but continues to show evidence on abdominal series of being constipated. OBJECTIVE: VITAL SIGNS: T max 99.9, pulse 87, blood pressure 91/59, respirations 8, satting 97% on 1 liter nasal cannula. I's and O's show a positive balance of approximately 700 since admission. Weight from admission to 52.1 kg. GENERAL: The patient is resting comfortably, just having eaten breakfast. She appears to be in no acute distress. CHEST: Lungs are clear to auscultation, just slightly diminished towards the bases bilaterally. HEART: Regular rate and rhythm without notable murmurs, gallops, or rubs. ABDOMEN: somewhat distended but soft with positive bowel sounds and some diffuse tenderness on palpation but no rebound tenderness. No guarding. EXTREMITIES: Left extremity shows no edema. Right leg has hpsqj-yty-zbzu amputation. NEUROLOGIC: She is alert. Appears to be back to more a baseline status. She will answer some basic questions and can tell me that she has some pain in her belly, but otherwise does not communicate to any degree, but is not showing any new motor or sensory deficit since admission. LABORATORY: White count has increased slightly back up to 13,000, but hemoglobin and hematocrit show to be stable at 9.3 and 29.6 with platelet count 266,000. Differential does show a continued left shift and continued bands, but are down to 10% today. Chemistries show normal electrolytes. Carbon dioxide is a little low at 20 but anion gap is normal at 12 with BUN 17, creatinine 0.56, calcium 8.4. MICROBIOLOGY: Urine cultures are pending. RADIOLOGY: Abdominal series this morning flat and upright per radiology interpretation showed nonspecific nonobstructive bowel gas pattern with mild constipation and a continued small right sided pleural effusion. ASSESSMENT: 1. Right pyelonephritis acute on chronic secondary to obstructing ureteral stone status post nephroureterostomy. 2. Sepsis secondary to #1 with continued low-grade temperature and leukocytosis with increased bands and mild hypotension with the patient currently continuing to be on Cefepime. 3. Moderate mental retardation. 4. Type 2 diabetes mellitus with a history of xsgct-jig-hylz amputation secondary to complications. 5. Depression again with questionable seizure activity as the patient is on Depakote. 6. Mild electrolyte imbalance with hypokalemia back to baseline after IV fluids. 7. Moderate constipation. 8. Abdominal pains without any nausea or vomiting felt to be secondary to some constipation with the patient showing good response with laxative and stool softeners. PLAN: Again will continue with antibiotic therapy at this point with Cefepime 2 grams every 8 hours. Cultures are still pending and will await those to further target antibiotic therapy. Will try another dose of Milk of Magnesia after a Dulcolax suppository as there is noted on her abdominal series a large amount of stool in the rectal vault. Will plan to repeat labs in the morning, including a CBC and a BMP as well as another abdominal series. I will order a consultation for urology tomorrow. She continues on DVT prophylaxis and insulin sliding scale. Will continue with IV fluids and if she shows improved oral intake, will saline lock her. Will anticipate at least another 24 to 48 hours of hospitalization, again as her leukocytosis has increased slightly and considerations for possible additional antibiotic coverage with consideration for Levaquin and consideration possibly for vancomycin again as she has been recently in the hospital on antibiotics, and is a resident of a nursing home care facility. But at this point she appears to be stable with slight improvement and will continue with antibiotic therapy until indicative of further decline clinically, and again if she does show significant clinical decline and is hemodynamically unstable, will certainly consult with urology at [facility] for transfer to a higher level of care. Until the patient is able to discharge and is more stable clinically, will continue to monitor and treat appropriately. #[id number] [facility]
[2018-01-26] MEDS: NYSTATIN POWDER 15GM BTTL TOP SCH ×3 (13:20→21:30)
[2018-01-26] MEDS: ENOXAPARIN SODIUM 40 MG/0.4 ML SYG SUBCU SCH (21:09)
[2018-01-26] MEDS: MIRTAZAPINE 15 MG TAB PO SCH (21:10)
[2018-01-26] MEDS: ATORVASTATIN 20 MG TAB PO SCH (21:10)
[2018-01-27] MEDS ORDERED: SODIUM CHL 0.9% 50ML MIN-BAG+ 50 ML IVPB ONE ×3 (03:50→17:10)
[2018-01-27] MEDS ORDERED: CEFEPIME 2 GM VIAL ONE (03:52)
[2018-01-27] MEDS: KCL 20MEQ/0.45% NS 1,000 ML IVS PRN ×2 (04:00→19:09)
[2018-01-27] MEDS: MORPHINE SULFATE INJ 10 MG/ML VIAL IV PRN (05:45)
[2018-01-27] MEDS: CEFEPIME 2 GM in SODIUM CHL 0.9% 50ML MIN-BAG+ 50 ML IVPB SCH (05:56)
[2018-01-27] MEDS: INSULIN LISPRO 100 UNITS/ML PEN SUBCU SCH ×4 (07:09→22:37)
--- NOTE | 2018-01-27 07:11 | RAD ---
CLINICAL HISTORY:abdominal pain. :1960. Sex:Female. TECHNIQUE: Supine and upright views of the abdomen. There is no intestinal dilatation. A percutaneous nephrostomy tube is noted on the right. There is no mass. There is no free air. There is no opaque calculus. There are postsurgical changes to the right hip.. There is a right basilar airspace opacity with right pleural effusion IMPRESSION: Right basilar airspace opacity with right pleural effusion. Nonobstructing bowel gas pattern Electronically signed by: Gilbert Meyer MD 01/27/2018 7:10 AM CDT Workstation: [id number]
[2018-01-27] MEDS: FERROUS SULFATE 325 MG TAB PO SCH ×2 (07:31→17:18)
[2018-01-27] MEDS: POTASSIUM CHLORIDE 10 MEQ TAB PO SCH (07:31)
[2018-01-27] MEDS: metFORMIN HCL 500 MG TAB PO SCH (07:31)
[2018-01-27] MEDS: ESCITALOPRAM 10 MG TAB PO SCH (08:51)
[2018-01-27] MEDS: DIVALPROEX SODIUM 250 MG TAB PO SCH ×2 (08:51→20:21)
[2018-01-27] MEDS: metroNIDAZOLE 500 MG TAB PO SCH ×3 (08:51→20:21)
[2018-01-27] MEDS: BIFIDOBACTERIUM INFANTIS 4 MG CAP PO SCH ×2 (08:51→20:20)
[2018-01-27] MEDS: SUCRALFATE 1 GM/10 ML 1 GM UD PO SCH ×4 (08:51→20:21)
[2018-01-27] MEDS: IBUPROFEN 200 MG TAB PO SCH ×3 (08:51→20:19)
[2018-01-27] MEDS: SIMETHICONE 80 MG TAB PO SCH ×3 (08:52→20:23)
[2018-01-27] MEDS: TOPIRAMATE 25 MG TAB PO SCH (08:52)
[2018-01-27] MEDS: CHOLECALCIFEROL 2,000 IU TAB PO SCH ×2 (08:52→20:17)
[2018-01-27] MEDS: ASCORBIC ACID 500 MG TAB PO SCH (08:52)
[2018-01-27] MEDS: GABAPENTIN 300 MG CAP PO SCH ×2 (08:52→20:18)
[2018-01-27] MEDS: MULTIPLE VITAMIN 1 EA TAB PO SCH (08:53)
[2018-01-27] MEDS ORDERED: MEROPENEM 1 GM VIAL IVPB ONE ×2 (09:20→17:11)
[2018-01-27] MEDS: ASPIRIN (CHEWABLE) 81 MG TAB PO SCH (09:24)
[2018-01-27] MEDS: ACETAMINOPHEN 325 MG TAB PO SCH (09:24)
[2018-01-27] MEDS: SENNOSIDES 8.6 MG TAB PO SCH (09:24)
[2018-01-27] MEDS: MEROPENEM 1 GM in SODIUM CHL 0.9% 50ML MIN-BAG+ 50 ML IVPB SCH ×2 (09:25→17:16)
[2018-01-27] MEDS: NON-FORMULARY MEDICATION 1 EA MIS (Mirabegron [Myrbetriq] 25 MG) PO SCH (09:25)
[2018-01-27] MEDS: NYSTATIN POWDER 15GM BTTL TOP SCH ×4 (09:25→20:29)
[2018-01-27] MEDS: POLYETHYLENE GLYCOL 3350 17 GM PCKT PO SCH ×2 (09:55→09:59)
[2018-01-27] MEDS ORDERED: ALUM & MAG HYDROX-SIMETHICONE 30 ML UD ONE ×2 (14:46→19:48)
--- NOTE | 2018-01-27 19:30 | PN ---
DATE: 01/27/18 SUPERVISING PHYSICIAN: Jose Saez M.D. SUBJECTIVE: The patient is pretty confused but she is in no active distress. She complains of a little bit of lower abdominal discomfort. No shortness of breath. No chest pain. She does not know where she is and does not answer all of her questions appropriately. OBJECTIVE: Blood pressure 106/73, heart rate 82, respiratory rate 18, temperature 98.4, oxygen saturation 98%. GENERAL: Ms. Roberts is a 57 year-old female who is in no active distress. NEUROLOGIC: The patient is confused but follows commands. LUNGS: Clear to auscultation bilaterally but a little bit diminished in the bases. CARDIOVASCULAR: The patient has a regular rate and rhythm. Normal S1 and S2. ABDOMEN: Soft. Positive bowel sounds. Right lower quadrant seems to be a little bit tender to palpation, but that is on pretty deep palpation. GENITOURINARY: Exam is deferred. She does have a right sided nephrostomy tube in place. Drainage seems to be cloudy yellow. Lower extremities with a noted right aocnj-iza-eymv amputation. Left pedal pulse is 2 +. Capillary refill less than 2 seconds. LABORATORY: Labs are reviewed and show a white count 11.8 with 13% bandemia, hemoglobin 9.8, hematocrit 31.1, platelet count 263. Chemistry is pretty much unremarkable. ASSESSMENT: 1. Right pyelonephritis secondary to obstructing ureteral stone status post nephrostomy tube placement. 2. Sepsis secondary to #1. 3. Moderate mental retardation. 4. Type 2 diabetes mellitus. 5. Depression. 6. Electrolyte imbalance. 7. Moderate constipation. 8. Abdominal discomfort. PLAN: Given the fact I got records from [facility] but did not see a culture and sensitivity, I am going to go off of her previous culture and sensitivity done on 01/10/18 which showed Escherichia coli with multidrug resistance. I am going to change her to Merrem from Cefepime. Once again, I did speak with [facility] and they did send me records, but said they did not have a culture and sensitivity. I also spoke with Dr. Drake who actually came and saw the patient. He agrees at this point he would continue the antibiotics and get her over this acute episode, and once she is over the acute sepsis episode he recommends making a followup with Dr. Huang who saw the patient at [facility] on previous admission, and he could address the obstructing stone at that point. I will recheck her labs in the morning and continue to monitor her. I have discontinued the p.o. potassium due to the fact that she has a normal potassium level and she has potassium in her IV fluids as well. I did start her on some MiraLAX as I feel like some of her abdominal discomfort is meeting together a little bit of constipation. #[id number] [facility]
[2018-01-27] MEDS: ENOXAPARIN SODIUM 40 MG/0.4 ML SYG SUBCU SCH (20:19)
[2018-01-27] MEDS: MIRTAZAPINE 15 MG TAB PO SCH (20:19)
[2018-01-27] MEDS: ATORVASTATIN 20 MG TAB PO SCH (20:19)
[2018-01-27] MEDS: IV SET AND CAP CHANGE INJ INJ SCH (20:29)
[2018-01-28] MEDS ORDERED: SODIUM CHL 0.9% 50ML MIN-BAG+ 50 ML IVPB ONE ×3 (00:02→14:52)
[2018-01-28] MEDS ORDERED: MEROPENEM 1 GM VIAL IVPB ONE ×3 (00:02→14:52)
[2018-01-28] MEDS: MEROPENEM 1 GM in SODIUM CHL 0.9% 50ML MIN-BAG+ 50 ML IVPB SCH ×3 (00:32→17:06)
[2018-01-28] MEDS: MORPHINE SULFATE INJ 10 MG/ML VIAL IV PRN ×2 (06:30→11:09)
[2018-01-28] MEDS: INSULIN LISPRO 100 UNITS/ML PEN SUBCU SCH ×4 (07:23→20:50)
[2018-01-28] MEDS: FERROUS SULFATE 325 MG TAB PO SCH ×2 (07:46→17:06)
[2018-01-28] MEDS: metFORMIN HCL 500 MG TAB PO SCH (07:46)
[2018-01-28] MEDS: KCL 20MEQ/0.45% NS 1,000 ML IVS PRN (08:40)
[2018-01-28] MEDS: POLYETHYLENE GLYCOL 3350 17 GM PCKT PO SCH (08:42)
[2018-01-28] MEDS: SUCRALFATE 1 GM/10 ML 1 GM UD PO SCH ×4 (08:42→20:34)
[2018-01-28] MEDS: ESCITALOPRAM 10 MG TAB PO SCH (08:42)
[2018-01-28] MEDS: ACETAMINOPHEN 325 MG TAB PO SCH (08:43)
[2018-01-28] MEDS: DIVALPROEX SODIUM 250 MG TAB PO SCH ×2 (08:43→20:34)
[2018-01-28] MEDS: TOPIRAMATE 25 MG TAB PO SCH (08:43)
[2018-01-28] MEDS: ASPIRIN (CHEWABLE) 81 MG TAB PO SCH (08:43)
[2018-01-28] MEDS: MULTIPLE VITAMIN 1 EA TAB PO SCH (08:43)
[2018-01-28] MEDS: SIMETHICONE 80 MG TAB PO SCH ×3 (08:43→20:37)
[2018-01-28] MEDS: NON-FORMULARY MEDICATION 1 EA MIS (Mirabegron [Myrbetriq] 25 MG) PO SCH (08:44)
[2018-01-28] MEDS: BIFIDOBACTERIUM INFANTIS 4 MG CAP PO SCH ×2 (08:44→20:34)
[2018-01-28] MEDS: GABAPENTIN 300 MG CAP PO SCH ×2 (08:44→20:37)
[2018-01-28] MEDS: IBUPROFEN 200 MG TAB PO SCH ×3 (08:44→20:35)
[2018-01-28] MEDS: ASCORBIC ACID 500 MG TAB PO SCH (08:44)
[2018-01-28] MEDS: SENNOSIDES 8.6 MG TAB PO SCH (08:44)
[2018-01-28] MEDS: NYSTATIN POWDER 15GM BTTL TOP SCH ×4 (08:46→20:38)
[2018-01-28] MEDS: metroNIDAZOLE 500 MG TAB PO SCH ×3 (08:50→20:34)
[2018-01-28] MEDS: CHOLECALCIFEROL 2,000 IU TAB PO SCH ×2 (08:50→20:37)
[2018-01-28] MEDS: SODIUM CHLORIDE 0.9% 1000ML 1,000 ML IVS PRN ×2 (10:25→21:31)
--- NOTE | 2018-01-28 10:46 | PN ---
SUPERVISING PHYSICIAN: Jose Saez M.D. DATE: 01/28/18 SUBJECTIVE: The patient remains without significant distress. She still seems somewhat confused and does not answer questions appropriately every time they are asked, but states she is having bowel movements. She also states she ate her breakfast this morning. OBJECTIVE: VITAL SIGNS: Blood pressure 101/64. Heart rate 86. Respiratory rate 18. Temperature 99.1. Oxygen saturation 98%. GENERAL: Ms. Roberts is a 57 year-old female who is in no severe distress at this time. NEUROLOGIC: The patient is confused, but follows commands. LUNGS: Clear to auscultation bilaterally, but a diminished in the bases. CARDIOVASCULAR: Regular rate and rhythm. Normal S1 and S2. ABDOMEN: Soft. Positive bowel sounds. Somewhat bilateral lower quadrant tenderness to palpation, but only upon deep palpation. GENITOURINARY: Deferred, but she does have the noted right sided nephrostomy tube in place with cloudy drainage. EXTREMITIES: Left pedal pulse is 2+. Noted [id number] on the right. LABORATORY: White count 13.2, but a reduction in bands to 11%. Hemoglobin 9.7. Chemistry unremarkable. ASSESSMENT: 1. Right pyelonephritis secondary to obstructing ureteral stone status post nephrostomy tube placement. 2. Sepsis secondary to #1. 3. Moderate mental retardation. 4. Type 2 diabetes mellitus with controlled glucoses at this time. 5. Depression. 6. Electrolyte imbalance. 7. Moderate constipation. 8. Abdominal discomfort. PLAN: There has not been a lot of change as far as lab work goes. She did have elevation in the white count, however, bands went down, so it is an appropriate response. We are still awaiting the culture results done this admission so I am going to continue the Merrem. As stated yesterday, Dr. Drake saw the patient and recommended that she get over her acute illness and continue the current antibiotics and then once she is over this, she needs to have an appointment with Dr. Huang who saw the patient before at [facility] and he can address the obstructing stone at that time. Although her potassium is within normal limits, it is creeping up a little bit, so I am changing IV fluids to just normal saline with no potassium. #[id number] [facility]
[2018-01-28] MEDS ORDERED: LACTATED RINGERS 1,000 ML IVS ONE (18:37)
[2018-01-28] MEDS: ATORVASTATIN 20 MG TAB PO SCH (20:34)
[2018-01-28] MEDS: ENOXAPARIN SODIUM 40 MG/0.4 ML SYG SUBCU SCH (20:35)
[2018-01-28] MEDS: MIRTAZAPINE 15 MG TAB PO SCH (20:37)
[2018-01-29] MEDS ORDERED: SODIUM CHL 0.9% 50ML MIN-BAG+ 50 ML IVPB ONE ×2 (01:22→07:23)
[2018-01-29] MEDS ORDERED: MEROPENEM 1 GM VIAL IVPB ONE ×2 (01:23→07:25)
[2018-01-29] MEDS: MEROPENEM 1 GM in SODIUM CHL 0.9% 50ML MIN-BAG+ 50 ML IVPB SCH ×2 (01:26→08:37)
[2018-01-29] MEDS: MORPHINE SULFATE INJ 10 MG/ML VIAL IV PRN ×2 (05:59→10:14)
[2018-01-29] MEDS: FERROUS SULFATE 325 MG TAB PO SCH ×2 (07:32→16:30)
[2018-01-29] MEDS: INSULIN LISPRO 100 UNITS/ML PEN SUBCU SCH ×3 (07:32→16:21)
[2018-01-29] MEDS: metFORMIN HCL 500 MG TAB PO SCH (07:32)
[2018-01-29] MEDS: SUCRALFATE 1 GM/10 ML 1 GM UD PO SCH ×3 (08:35→16:30)
[2018-01-29] MEDS: metroNIDAZOLE 500 MG TAB PO SCH ×2 (08:35→14:38)
[2018-01-29] MEDS: ASCORBIC ACID 500 MG TAB PO SCH (08:35)
[2018-01-29] MEDS: ACETAMINOPHEN 325 MG TAB PO SCH (08:35)
[2018-01-29] MEDS: GABAPENTIN 300 MG CAP PO SCH (08:35)
[2018-01-29] MEDS: ESCITALOPRAM 10 MG TAB PO SCH (08:36)
[2018-01-29] MEDS: SIMETHICONE 80 MG TAB PO SCH ×2 (08:36→14:36)
[2018-01-29] MEDS: SENNOSIDES 8.6 MG TAB PO SCH (08:36)
[2018-01-29] MEDS: DIVALPROEX SODIUM 250 MG TAB PO SCH (08:36)
[2018-01-29] MEDS: IBUPROFEN 200 MG TAB PO SCH ×2 (08:36→14:36)
[2018-01-29] MEDS: TOPIRAMATE 25 MG TAB PO SCH (08:36)
[2018-01-29] MEDS: MULTIPLE VITAMIN 1 EA TAB PO SCH (08:36)
[2018-01-29] MEDS: BIFIDOBACTERIUM INFANTIS 4 MG CAP PO SCH (08:36)
[2018-01-29] MEDS: ASPIRIN (CHEWABLE) 81 MG TAB PO SCH (08:36)
[2018-01-29] MEDS: CHOLECALCIFEROL 2,000 IU TAB PO SCH (08:36)
[2018-01-29] MEDS: POLYETHYLENE GLYCOL 3350 17 GM PCKT PO SCH (08:37)
[2018-01-29] MEDS: NON-FORMULARY MEDICATION 1 EA MIS (Mirabegron [Myrbetriq] 25 MG) PO SCH (08:37)
[2018-01-29] MEDS: NYSTATIN POWDER 15GM BTTL TOP SCH ×3 (08:38→16:59)
[2018-01-29] MEDS: SODIUM CHLORIDE 0.9% 1000ML 1,000 ML IVS PRN (11:39)
--- NOTE | 2018-01-29 12:12 | CT ---
Study: CT abdomen and pelvis. Indication: right pyelo with obstruction w/nephrostomy Technique: Venous and delayed phase CT imaging of the abdomen and pelvis obtained after intravenous administration of contrast. This exam was performed according to our departmental dose-optimization program, which includes automated exposure control, adjustment of the mA and/or kV according to patient size and/or use of iterative reconstruction technique. Comparison: January 10, 2018. Findings: Small right and tiny left pleural effusions redemonstrated. Mild dependent atelectasis versus consolidation, right and left. Mild cardiomegaly. Liver, gallbladder, pancreas, spleen, adrenal glands, left kidney demonstrates stable CT appearance. Luevano catheter mild air within the bladder. Right nephrostomy tube with the the tip of the tube terminating within the mid ureter at the L5-S1 level. No hydronephrosis. The previously noted obstructing 12 mm stone within the right ureter at the level of the inferior margin of the right iliac wing redemonstrated and is stable. There is mild right renal atrophy and cortical thinning. No definite renal abscess or progressed inflammation identified. Only minimal right perinephric stranding noted and appears similar to the prior. On axial images 51-62 along the anterior margin of the right ureter and right iliac vasculature at the pelvic inlet there is a bilobed rim-enhancing fluid collection measuring up to 7.3 cm transverse by 1.6 cm AP by 5.8 cm craniocaudal. A secondary component of this collection likely extends into the deep pelvis but is difficult to separate from loops of small bowel and does appear progressed. This may reflect an infected urinoma or abscess. The pelvic component measures approximately 3.9 cm transverse by 3.8 cm AP by 3.2 cm craniocaudal. It closely approximates the rectosigmoid colon junction as well. No gross acute abnormalities stomach, small bowel, or colon. What is believed to be the appendix is fluid-filled and closely approximates the superolateral margin of the previously noted fluid collection anterior to the right iliac vasculature. It measures 8 mm in diameter. Subacute appendicitis and associated enlarging abscess is also a consideration. No free air. Pronounced atherosclerosis aorta and its branches with severe narrowing at the right common iliac artery and moderate to severe narrowing of the proximal left common iliac artery. Prior ORIF of a right femoral neck fracture. Osteopenia. Impression: Right nephrostomy tube with a persistent stone within the distal right ureter. No hydronephrosis at this time. Stable minimal inflammation about the right kidney. Enlarging rim-enhancing fluid collection along the anterior margin of the right iliac vasculature/ureter and tracking deep into the pelvis. This could reflect an infected urinoma or abscess. An abscess associated with subacute appendicitis is also a consideration. General surgery consultation advised. Additional findings as above. Electronically signed by: Ilir Becker MD 01/29/2018 12:11 PM CDT
[2018-01-29] MEDS ORDERED: PIPERACILLIN/TAZOBACTAM 3.375 GM in SODIUM CHLORIDE 0.9% 100ML 100 ML IVPB ONE (12:33)
[2018-01-29] MEDS ORDERED: PIPERACILLIN/TAZOBACTAM 3.375 GM VIAL IVPB ONE ×2 (12:40→16:08)
[2018-01-29] MEDS ORDERED: SODIUM CHLORIDE 0.9% 100ML 100 ML IVPB ONE ×2 (12:40→16:09)
[2018-01-29] MEDS ORDERED: PIPERACILLIN/TAZOBACTAM 3.375 GM in SODIUM CHLORIDE 0.9% 100ML 100 ML IVPB SCH ×2 (13:00→17:00)
[2018-01-29 14:09] VITALS: BP 93/52; TEMP 98.9; O2SAT 96
[2018-01-29] MEDS ORDERED: MEROPENEM 1 GM in SODIUM CHL 0.9% 50ML MIN-BAG+ 50 ML IVPB SCH (21:00)
--- NOTE | 2018-02-03 09:23 | DS ---
SUPERVISING PHYSICIAN: Jose Saez MD ADMISSION DIAGNOSIS: 1. Right pyelonephritis, acute on chronic, secondary to obstructing ureteral stone status post nephroureterostomy. 2. Sepsis secondary to #1 as evidenced by low-grade fever and leukocytosis with increased bands and hypotension with the patient on cefepime at time of admission. 3. Moderate mental retardation. 4. 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 5. Depression with questionable seizure activity with the patient being on multiple medications including Depakote with the patient being a poor historian. DISCHARGE DIAGNOSIS: 1. Intraabdominal abscess versus urinoma with the patient showing acute decline, failing to respond to multiple antibiotic therapy requiring surgical consultation for further evaluation. 2. Right pyelonephritis, acute on chronic, secondary to obstructing ureteral stone status post nephrostomy tube placement, improving and stable. 3. Sepsis secondary to #1 with continued leukocytosis, increased bands and intermittent hypotension requiring further higher level evaluation and surgical intervention. 4. Moderate mental retardation. 5. Type 2 diabetes mellitus with [id number]-[id number] amputation on the right secondary co complications. 6. History of depression. REASON FOR HOSPITALIZATION: Ms. Roberts is a 57-year-old female patient who resides at [facility]. On 01/24/18, she was brought to the Emergency Room by EMS with altered mental status and low blood pressure reported by the longterm. The patient is mentally challenged and a very poor historian. Previous records were reviewed for history as there was no family available for further information at time of admission. According to Emergency Room records, she was seen at [facility] Emergency Room 2 weeks previous and diagnosed with sepsis at which time she was transported to [facility] with a high white count of greater than 42,000. At that time the patient was treated for sepsis secondary to pyelonephritis due to a ureteral stone that was resulting in complete obstruction of the right ureter. The stone measured 12 x 9 mm. At some point, she had a percutaneous drain placed for an abscess, fluid collection as well as a nephroureterostomy in the right inferior collecting system. According to the longterm notes, the patient was treated with cefepime which was continued at the longterm after she was discharged from [facility]. At some point the the percutaneous drain was removed and the longterm staff noted that there again was some purulent drainage coming from the nephroureterostomy tube. She also reportedly had a low -grade fever and was having some mental status changes along with some hypotension. On initial presentation to the Emergency Room, her vital signs showed temperature 98.2 with blood pressure 88/55. Review of previous Emergency Room records on the last ER visit showed the patient had severe hypotension and required Levophed at the time of transfer to ICU. Laboratory studies at the time of admission on this hospitalization showed white count of 13,400 compared to previous of 46,100, but 13% bands were noted with a left shift. Review of previous records showed that she grew an Escherichia coli that was fairly resistant showing sensitive to Zosyn and Bactrim. She has been on cefepime 2 grams every 8 hours since discharge from [facility] for a total of 7 day course which was completed on day of admission. Additional laboratory studies showed that her creatinine was within normal limits as well as liver functions were all within normal limits. Electrolytes were normal with potassium 3.9. Urine from Luevano catheter in the Emergency Room showed that she had a trace of blood, leukocyte esterase and 5 to 10 WBCs with 1+ bacteria. A CT with contrast of pelvis and abdomen was completed and per radiology interpretation there once again was noted a 12 x 9 mm stone in the distal right ureter which was seen on previous study. There was no hydronephrosis or perirenal fluid noted. Of note was a persistent fluid collection in the lateral pelvis measuring 3.8 x 2.7 x 5 cm which is reportedly stable compared to previous study, although abscess could not be ruled out nor could communication between the fluid collection and the ureter versus free fluid in the lower abdomen and pelvis. Of note was a previously seen percutaneous drain terminating above the fluid collection had been removed and the right nephroureterostomy had been performed posterior to the inferior right collecting system with a catheter that was terminated just above the right ureteral stone. In the Emergency Room, the patient was given IV fluids as well as a dose of cefepime and was found to be hemodynamically stable. Dr. Gutierres at that point contacted member of congress urologist at [facility] who recommended that if the patient was stable that she could be admitted in [place] and continue antibiotic therapy and close monitoring, but should she show instability she could at that time be transferred to [facility] for a higher level of care. The patient was then admitted to [facility] with pyelonephritis of right kidney secondary to obstructed ureter from a ureteral stone as noted above. She was admitted in stable condition. LABORATORY: Initial white count on admission showed 13,400 with hemoglobin 9.9 , hematocrit 31.4, platelet count 299,000. Differential did show a left shift with 13% bands. The white count persisted and went up to a maximum of 15.9 which was on date of discharge with a left shift continued and 12% bands with some metamyelocytes noted as well. Hemoglobin and hematocrit were stable throughout hospitalization and at transfer, hemoglobin was 9.7, hematocrit 31.3. On admission coag studies showed normal PT and PT-T. Chemistries at time of admission to the Emergency Room showed normal electrolytes with BUN 22, creatinine 0.79, liver functions within normal limits. Glucose 79, troponin less than 0.02. Her electrolytes remained fairly stable and at time of transfer , she had normal electrolytes with potassium 4.0, BUN 7, creatinine 0.53. Blood sugars ranged from 78 to 143. Calcium remained normal and at transfer was 8.8. Urinalysis from Luevano catheter showed clear yellow urine with trace of intact blood on dipstick as well as trace leukocyte esterase. Microscopic revealed 1 to 2 RBCs, 5 to 10 WBCs, no epithelials, 1+ bacteria. MICROBIOLOGY: Urine culture from the nephrostomy fluid showed no growth at 36 hours. RADIOLOGY: Initially in the Emergency Department, she had a chest x-ray and per radiologic interpretation showed small to moderate right pleural effusion. She also had an abdominal and pelvic CT in the Emergency Room with contrast and per radiologic interpretation showed a persistent fluid collection in the lateral pelvis abutting the adnexa and the right ureter which was obstructing 12 x 9 mm stone and a 3.8 x 2.7 x 5 cm stable fluid collection compared to previous studies, but could no rule out an abscess or communication with fluid collection in ureter versus free fluid in the lower abdomen. There was also note of a previously seen percutaneous drain terminating above the fluid collection that had been removed and also a right nephrostomy has been performed posterior through the inferior right collecting system with a catheter terminating just above the right ureteral stone. There was no perirenal fluid, hydronephrosis on the right. There was small nonobstructing stone in the left kidney. Left ureter was unremarkable. Also of note was decreased distention of small bowel, decreased fluid in the right pericolic gutter and cul-de-sac and also left abdomen and pelvis except for previously described fluid collection. Please see that report for full details. After admission, she had several abdominal x-rays and on 01/27/18, abdominal x-ray per radiologic interpretation showed right basilar airspace opacity with right pleural effusion, nonobstructing bowel gas pattern. On the day of discharge and transfer, she had a repeat CT of abdomen and pelvis with contrast and per radiologic interpretation showed right nephrostomy with a persistent stone in the distal right ureter, no hydronephrosis, stable minimal inflammation about the right kidney. There was note of enlarging rim enhancing fluid collection along the anterior margin of the right iliac vasculature/ureter and tracking deep into the pelvis which could reflect an infected urinoma or abscess. An abscess associated with subacute appendicitis is also a consideration. General surgery consultation was advised. HOSPITAL COURSE: Ms. Roberts was admitted on 01/24/18 as noted above for concerns for early sepsis secondary to pyelonephritis. She was initially continued on cefepime and was given IV fluids. She had some episodes of some mild hypotension, but responded well to IV fluids and continued to be stable. She had some issues with some with constipation and abdominal pain initially starting on the left that were addressed with MiraLAX, Milk of Magnesia with the patient having good results. Her abdominal pains continued to increase over the length of stay moving from the left across to the right lower quadrant. She also was noted to have continuation of left shift which was persistent despite antibiotic therapy that was modified initially from cefepime to include meropenem. Given that she had shown persistent leukocytosis with bands increasing and some mild hypotension and CT that was repeated showing concerns for increasing abscess and possible abscess appendicitis warranting surgical consultation, the patient was secured for transfer to [facility] for further evaluation by surgical consult and urology. PLAN: Ms. Roberts was discharged to be transferred to [facility] via ground ambulance from [facility] for surgical consultation unavailable at this facility. Medication list was provided as well as x-rays and imaging studies were sent with the patient. Receiving facility accepted the patient in transfer by hospitalist on duty as well as urology. The patient remained NPO, on meropenem with the addition of Zosyn at the time of discharge. The patient was hemodynamically stable, afebrile on discharge and transfer with temperature 98.8, pulse 102, blood pressure 93/50, respirations 20, saturation 96% on nasal cannula. The patient was discharged in stable but guarded condition. #[id number] [facility]
== END 2018-01-29 17:40 | disposition short-term general hospital (02) | DRG 871 ==
LOC: ER 11:45 → MS 21:31 → OBSVTOIN 21:31
PROVIDERS: ADMIT Nurse Practitioner Family; ATTEND Nurse Practitioner Family
PROC: BW210ZZ Computerized Tomography (CT Scan) of Abdomen and Pelvis using High Osmolar Contrast (ICD-10-PCS; principal; 2018-01-29)
DX: A41.9 Sepsis, unspecified organism (principal); K65.1 Peritoneal abscess; N10 Acute pyelonephritis; N20.1 Calculus of ureter; N36.8 Other specified disorders of urethra; E87.6 Hypokalemia; B96.20 Unspecified Escherichia coli [E. coli] as the cause of diseases classified elsewhere; F32.9 Major depressive disorder, single episode, unspecified; E11.43 Type 2 diabetes mellitus with diabetic autonomic (poly)neuropathy; K59.00 Constipation, unspecified; F71 Moderate intellectual disabilities; E11.9 Type 2 diabetes mellitus without complications; Z16.24 Resistance to multiple antibiotics; Z66 Do not resuscitate; Z89.611 Acquired absence of right leg above knee; Z93.6 Other artificial openings of urinary tract status

== ENCOUNTER → 2018-04-22 | Outpatient (CLI) | payer MEDICARE, OTHER ==
--- NOTE | 2018-04-22 15:13 | US ---
EXAM DESCRIPTION: Renal: Ultrasound. CLINICAL HISTORY: FOLLOW Up, ureteral CALCULUS COMPARISON: CT scan of the abdomen and pelvis with IV contrast 01/29/2018. TECHNIQUE: Transcutaneous scanning: Two-dimensional and Doppler modes. FINDINGS: Right kidney measures 5.1 x 2.3 x 2.2 cm; mid-renal cortical thickness 5 mm. . Increased cortical echogenicity. Percutaneous nephrostomy has been removed since the prior CT scan. No hydronephrosis No echogenic stones. Lobulated contour of the kidney with no perinephric fluid. Proximal ureter not visualized. Left kidney measures 10.2 cm; mid-renal cortical thickness normal.. Normal echogenicity. No hydronephrosis. No echogenic stones. Smooth contour of the kidney with no perinephric fluid. Proximal ureter not visualized. Urinary bladder was visualized. Volume not evaluated. Ureteral jet in the bladder seen by Doppler on the left only. Abdominal aorta diameter not measured. IMPRESSION: 1. Most likely chronic right renal disease which may be due to vascular abnormality, infection, or chronic obstruction. Small kidney, significantly thinned cortex, increased echogenicity. Percutaneous nephrostomy has been removed. No hydronephrosis or perinephric fluid. 2. Left kidney is unremarkable by sonography. 3. Left ureteral jet seen in the bladder by Doppler. No ureteral jet on the right. Electronically signed by: Gianfranco Gray MD 04/22/2018 3:12 PM WEAVING MACHINE OPERATOR
== END ==
LOC: US 08:00
PROVIDERS: ATTEND Urology
DX: N20.1 Calculus of ureter (principal)

== ENCOUNTER → 2018-11-21 | Outpatient (CLI) | payer MEDICARE, OTHER | LOC: GT 21:44 | PROVIDERS: ATTEND Internal Medicine | DX: N39.0 Urinary tract infection, site not specified (principal) ==

== ENCOUNTER 2019-07-26 21:34 | Emergency (ER) | payer MEDICARE, OTHER ==
[2019-07-26] MEDS ORDERED: SODIUM CHLORIDE 0.9% (FLUSH) 10 ML SYG IV PRN (22:01)
[2019-07-26] MEDS ORDERED: SODIUM CHLORIDE 0.9% 1000ML 1,000 ML IVS ONE (22:31)
--- NOTE | 2019-07-26 23:16 | RAD ---
EXAM: XR Chest, 1 View CLINICAL HISTORY: The patient is 59 years old and is Female; sob TECHNIQUE: Frontal view of the chest. COMPARISON: Chest radiograph January 24, 2018. FINDINGS: LUNGS: Calcified cystic structures within the right lung apex is noted and stable. The lungs are otherwise clear. PLEURAL SPACE: Unremarkable. No pneumothorax. HEART: Unremarkable. No cardiomegaly. MEDIASTINUM: Unremarkable. BONES/JOINTS: Unremarkable. VASCULATURE: Atherosclerosis of the aorta is present. IMPRESSION: No acute cardiopulmonary process. Electronically signed by: Cheyanne Ryan MD 07/26/2019 11:14 PM TAPPER HELPER
[2019-07-26] MEDS ORDERED: levoFLOXacin 500MG IV 500 MG in PREMIX BAG 1 BAG IVPB ONE (23:35)
--- NOTE | 2019-07-27 00:09 | CT ---
EXAM: CT Head Without Intravenous Contrast CLINICAL HISTORY: The patient is 59 years old and is Female; altered mental status TECHNIQUE: Axial computed tomography images of the head/brain without intravenous contrast. Sagittal and coronal reformatted images were created and reviewed. This CT exam was performed using one or more of the following dose reduction techniques: automated exposure control, adjustment of the mA and/or kV according to patient size, and/or use of iterative reconstruction technique. COMPARISON: No relevant prior studies available. FINDINGS: BRAIN: There is diffuse cerebral atrophy present, consistent with this patient's age. There is patchy hypoattenuation of the deep white matter which is non-specific, but most likely owing to chronic small vessel ischemic change in a patient of this age group. Encephalomalacia within the left frontotemporal lobe is present. No intracranial hemorrhage, mass effect, or midline shift is seen. There are no extra-axial fluid collections. VENTRICLES: There is diffuse prominence of the ventricles, which is likely related to central atrophy. BONES/JOINTS: No acute fracture. SOFT TISSUES: Unremarkable. SINUSES: Unremarkable as visualized. No acute sinusitis. MASTOID AIR CELLS: Unremarkable as visualized. No mastoid effusion. ORBITS: Unremarkable as visualized. IMPRESSION: No acute intracranial findings. Chronic findings as above. Electronically signed by: Cheyanne Ryan MD 07/27/2019 12:07 AM WELDING PANTOGRAPH MACHINE OPERATOR
[2019-07-27] MEDS ORDERED: levoFLOXacin 500MG IV 100 ML IVPB ONE (00:27)
[2019-07-27 01:18] VITALS: O2SAT 98
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
[2019-07-27] MEDS ORDERED: SODIUM CHLORIDE 0.9% 1000ML 1,000 ML IVS ONE (02:27)
[2019-07-27 03:16] VITALS: BP 106/72; TEMP 98.6
== END 2019-07-27 03:10 | disposition short-term general hospital (02) ==
LOC: ER 21:34
DX: R41.82 Altered mental status, unspecified (principal); I10 Essential (primary) hypertension; E11.40 Type 2 diabetes mellitus with diabetic neuropathy, unspecified; K21.9 Gastro-esophageal reflux disease without esophagitis; Z87.891 Personal history of nicotine dependence; Z79.899 Other long term (current) drug therapy; Z79.82 Long term (current) use of aspirin; Z88.5 Allergy status to narcotic agent; Z88.2 Allergy status to sulfonamides
CPT/HCPCS: 70450; 71045; 80053; 81001; 82550; 82553; 83605; 83919; 84484; 85025; 85379; 87040; 87086; 93005; J1956; J7030

== ENCOUNTER → 2019-08-02 | Outpatient (CLI) | payer MEDICARE, OTHER | LOC: GT 13:42 | PROVIDERS: ATTEND Internal Medicine | DX: Z51.81 Encounter for therapeutic drug level monitoring (principal) ==